=== PATIENT | female | born 1965 | race American Indian/Alaskan Native ===

== ENCOUNTER 2017-06-26 09:59 | Emergency (ER) | payer OTHER ==
[2017-06-26 10:16] VITALS: BP 115/64
[2017-06-26 10:53] LABS: Basophils % (Auto) 0.8 % (0.0-1.8); Eosinophils % (Auto) 0.8 % (0.0-4.3); Hematocrit 34.3 % (30.3-42.9); Hemoglobin 10.8 gm/dl (10.1-14.3); Mean Corpuscular HGB Conc 32 % (30-34); Mean Corpuscular Volume 73 fl (79-97); Platelet Count 273 K/mm3 (140-440); Red Blood Count 4.69 M/mm3 (3.65-5.03); Red Cell Distribution Width 18.1 % (13.2-15.2); White Blood Count 7.3 K/mm3 (4.5-11.0)
[2017-06-26 10:57] LABS: Mean Corpuscular Hemoglobin 23 pg (28-32)
[2017-06-26 11:26] LABS: Alanine Aminotransferase 14 units/L (7-56); Albumin 3.6 g/dL (3.9-5); Alkaline Phosphatase 60 units/L (35-129); Anion Gap 17 mmol/L; BUN/Creatinine Ratio 11.25; Blood Urea Nitrogen 9 mg/dL (7-17); Carbon Dioxide 23 mmol/L (22-30); Chloride 104.6 mmol/L (98-107); Glucose 80 mg/dL (65-100); Potassium 4.3 mmol/L (3.6-5.0); Sodium 140 mmol/L (137-145); Total Protein 7.2 g/dL (6.3-8.2)
[2017-06-26] MEDS ORDERED: BENADRYL IV ONE (16:14)
[2017-06-26] MEDS ORDERED: REGLAN IV ONE (16:14)
[2017-06-26] MEDS ORDERED: NACL 0.9% 1000 ML 1,000 ML IV ONE (16:14)
--- NOTE | 2017-06-26 16:17 | Cat Scan Report ---
CRANIAL CT SCAN: Fall, headache. Serial contiguous axial images were obtained through the cranium. Intravenous contrast material was not administered. The ventricles are normal in size and appearance. There is no mass effect or midline shift. No areas of abnormally increased or decreased attenuation are seen. No mass lesion is seen. The mastoid air cells and visualized portions of the sinuses are normal except for a left frontal osteoma. IMPRESSION: Intracranial CT scan within normal limits. Left frontal osteoma.
--- NOTE | 2017-06-26 16:35 | Emergency Department Report ---
ED Headache HPI - General Chief Complaint: Headache Stated Complaint: HEAD INJURY/NAUSEA/DIZZINESS Time Seen by Provider: 06/26/17 15:01 Source: patient Exam Limitations: no limitations - History of Present Illness Initial Comments: This is a 52-year-old female nontoxic, well nourished in appearance, no acute signs of distress presents to the ED complaining of headache 3 days. Patient stated she was at work and a package of blankets weighing about 30-45 pounds landed on her head which causes her to have headache immediately. They stated every since the trauma patient has been having headaches with nausea or vomiting. Patient describes headache as diffuse and describes it as throbbing/ aching. Patient level is 7 out of 10. Patient stated that light causes the headache to worsen and darkness subside headache. Patient denies any blurry vision or visual changes. Patient denies any chest pain, shortness of breath, fever, chills, stiff neck, numbness, tingling, or abdominal pain. Patient denies loss of consciousness. They stated she felt like her neck had a jerking sensation. Patient denies any allergies or past medical history. Patient's son Real is curretnly at bedside and stated he is the drive and will drive the patient home. Timing/Duration: other (3 days) Quality: moderate Head Injury Location: other (diffuse) Recent Head Trauma: head trauma > 24 hrs ago Associated Symptoms: nausea/vomiting. denies: confusion, fatigue, facial pain, fever/chills, flushing, loss of consciousness, nasal congestion, nasal drainage , numbness in legs/feet, rash, seizures, sinus infection, stiff neck, vision changes, weakness Allergies/Adverse Reactions: Allergies peanut Adverse Reaction (Verified 06/26/17 10:21) Swelling wheat Adverse Reaction (Verified 06/26/17 10:20) Swelling Home Medications: Ambulatory Orders Butalb/Acetamin/Caff 50-325-40 [Fioricet] 1 tab PO Q6HR PRN #60 tab 06/26/17 ED Review of Systems ROS: Stated complaint: HEAD INJURY/NAUSEA/DIZZINESS Other details as noted in HPI Constitutional: denies: chills, fever Eyes: denies: eye pain, eye discharge, vision change ENT: denies: ear pain, throat pain Respiratory: denies: cough, shortness of breath, wheezing Cardiovascular: denies: chest pain, palpitations Endocrine: no symptoms reported Gastrointestinal: denies: abdominal pain, nausea, diarrhea Genitourinary: denies: urgency, dysuria, discharge Musculoskeletal: denies: back pain, joint swelling, arthralgia Skin: denies: rash, lesions Neurological: denies: headache, weakness, paresthesias Psychiatric: denies: anxiety, depression Hematological/Lymphatic: denies: easy bleeding, easy bruising ED Past Medical Hx - Past Medical History Previous Medical History?: No - Surgical History Additional Surgical History: DNC 1989 - Social History Smoking Status: Never Smoker Substance Use Type: None - Medications Home Medications: Home Medications Medication Instructions Recorded Confirmed Last Taken Type Butalb/Acetamin/Caff 50-325-40 1 tab PO Q6HR PRN #60 tab 06/26/17 Unknown Rx [Fioricet] ED Physical Exam - General Limitations: No Limitations General appearance: alert, in no apparent distress - Head Head exam: Present: atraumatic, normocephalic, normal inspection - Eye Eye exam: Present: normal appearance, PERRL, EOMI. Absent: scleral icterus, conjunctival injection, nystagmus, periorbital swelling, periorbital tenderness Pupils: Present: normal accommodation - ENT ENT exam: Present: normal exam, normal orophraynx, mucous membranes moist, TM's normal bilaterally, normal external ear exam - Neck Neck exam: Present: normal inspection, full ROM. Absent: tenderness, meningismus, lymphadenopathy, thyromegaly - Respiratory Respiratory exam: Present: normal lung sounds bilaterally. Absent: respiratory distress, wheezes, rales, rhonchi, stridor, chest wall tenderness, accessory muscle use, decreased breath sounds, prolonged expiratory - Cardiovascular Cardiovascular Exam: Present: regular rate, normal rhythm, normal heart sounds. Absent: bradycardia, tachycardia, irregular rhythm, systolic murmur, diastolic murmur, rubs, gallop - GI/Abdominal GI/Abdominal exam: Present: soft, normal bowel sounds. Absent: distended, tenderness, guarding, rebound, rigid, diminished bowel sounds - Rectal Rectal exam: Present: deferred - Extremities Exam Extremities exam: Present: normal inspection, full ROM, normal capillary refill. Absent: tenderness, pedal edema, joint swelling, calf tenderness - Back Exam Back exam: Present: normal inspection, full ROM, paraspinal tenderness ( cervical region), rash noted. Absent: tenderness, CVA tenderness (R), CVA tenderness (L), muscle spasm, vertebral tenderness - Expanded Back Exam Expanded Back exam: Present: normal rectal tone. Absent: saddle anesthesia Back exam: Negative Straight Leg Raising: Left, Right - Neurological Exam Neurological exam: Present: alert, oriented X3, CN II-XII intact, normal gait, reflexes normal - Expanded Neurological Exam Expanded Patient oriented to: Present: person, place, time Speech: Present: fluid speech Cranial nerves: EOM's Intact: Normal, Gag Reflex: Normal, Tongue Deviation: Normal, Nystagmus: Normal, Facial Sensation: Normal, Facial Palsy with Forehead Movement: Normal, Facial Palsy without Forehead Movement: Normal Cerebellar function: Finger to Nose: Normal, Heel to [place]: Normal, Romberg: Normal Upper motor neuron: Kunal Neglect: Normal, Pronator Drift: Normal, Babinski Sign : Normal, Sensory Extinction: Normal Sensory exam: Upper Extremity Light Touch: Normal, Upper Extremity Pin Prick: Normal, Upper Extremity Temperature: Normal, UE 2 Point Discrimination: Normal, Lower Extremity Light Touch: Normal, Lower Extremity Pin Prick: Normal, Lower Extremity Temperature: Normal, LE 2 Point Discrimination: Normal Motor strength exam: RUE: 5, LUE: 5, RLE: 5, LLE: 5 DTR: bicep (R): 2+, bicep (L): 2+, tricep (R): 2+, tricep (L): 2+, knee (R): 2+ , knee (L): 2+, ankle (R): 2+, ankle (L): 2+ Best Eye Response ([place]): (4) open spontaneously Best Motor Response ([place]): (6) obeys commands Best Verbal Response (Elvie): (5) oriented Elvie Total: 15 - Psychiatric Psychiatric exam: Present: normal affect, normal mood - Skin Skin exam: Present: warm, dry, intact, normal color. Absent: rash - Other Other exam information: Negative spinal tenderness. No bladder or bowel instability. No joint swelling or redness. No deformity. No numbness, no tingling. No ecchymosis. No abdominal distention. ED Course Vital Signs 06/26/17 10:08 Temperature 98.6 F Pulse Rate 76 Respiratory 16 Rate Blood Pressure 115/64 O2 Sat by Pulse 100 Oximetry - Reevaluation(s) Reevaluation #1: 06/26/17 16:36 Patient is speaking in full sentences with no signs of any distress noted. Reevaluation #2: 06/26/17 17:42 Patient did headache has subsided after medical treatment in the ED. ED Medical Decision Making - Lab Data Result diagrams: 06/26/17 10:31 06/26/17 10:31 - Medical Decision Making ED course; this is a 52-year-old female that presents with headache 1-patient was examined by myself. Patient is stable. CT of head/brain and CT of cervical spine has been obtained and dictated by radiologist with no acute findings of any abnormalities. Patient was notified of CT results with noted by the patient. 2- patient received Benadryl and Reglan IV as well as normal saline 1000 mg in the ED. Patient's stated headache has subsided after medical treatment in the ED. 3- patient was instructed not to operate any machinery after discharge due to sedation/drowsiness of Benadryl and patient stated patient's son Real is currently at bedside and stated he is the drive and will drive the patient home. 4- patient was discharged with Fioricet 5- patient was instructed to follow-up with a primary care doctor/neurologist in 3-5 days or if symptoms worsen and continue return to emergency room as soon as possible possible. 6- At time time of discharge, the patient does not seem toxic or ill in appearance. No acute signs of distress noted. Patient agrees to discharge treatment plan of care. No further questions noted by the patient. 7- pt was notified to f/u with PCP for possible anemia. Critical care attestation.: If time is entered above; I have spent that time in minutes in the direct care of this critically ill patient, excluding procedure time. ED Disposition Clinical Impression: Headache Qualifiers: Headache type: unspecified Headache chronicity pattern: unspecified pattern Intractability: not intractable Qualified Code(s): R51 - Headache Anemia Qualifiers: Anemia type: unspecified type Qualified Code(s): D64.9 - Anemia, unspecified Disposition: DC-01 TO HOME OR SELFCARE Is pt being admited?: No Does the pt Need Aspirin: No Condition: Stable Instructions: Butalbital/Acetaminophen/Caffeine (By mouth), Iron Rich Diet (ED) , Iron Deficiency Anemia (ED), Acute Headache (ED) Additional Instructions: follow-up with a primary care doctor/neurologist in 3-5 days or if symptoms worsen and continue return to emergency room as soon as possible possible. Prescriptions: Butalb/Acetamin/Caff 50-325-40 [Fioricet] 1 tab PO Q6HR PRN #60 tab PRN Reason: Headache Referrals: PRIMARY CARE, [Primary Care Provider] - 3-5 Days GISEL CONROY MD [Staff Physician] - 3-5 Days RINA KEEN JR, MD [Referring] - 3-5 Days [facility] [Outside] - 3-5 Days [facility] [Outside] - 3-5 Days Forms: Work/School Release Form(ED)
--- NOTE | 2017-06-26 16:47 | Cat Scan Report ---
CT cervical spine without contrast: Trauma, tenderness. Transverse images were obtained from the skull base through T2. Coronal and sagittal 2-D reformatted images included. Anterior spurs are present inferiorly at C5 and C6. The vertebral height, alignment, and interspaces are generally preserved. There is no fracture. No spinal stenosis and no foraminal stenosis. The bones are well-mineralized. No soft tissue swelling. Impressions: C5 and C6 spondylosis with no acute findings.
== END 2017-06-26 17:51 | disposition home or self-care (01) ==
LOC: ED 09:59
DX: R51 Headache (principal); D64.9 Anemia, unspecified; W20.8XXA Other cause of strike by thrown, projected or falling object, initial encounter; Y93.89 Activity, other specified; Y92.89 Other specified places as the place of occurrence of the external cause; Y99.8 Other external cause status; Z91.010 Allergy to peanuts; Z91.018 Allergy to other foods
CPT/HCPCS: 36415; 70450; 72125; 80053; 85025; 85610; 96361; 96374; 96375; 99284; J1200; J2765; J7030

== ENCOUNTER 2018-06-23 10:10 | Emergency (ER) | payer BC, OTHER ==
[2018-06-23 10:17] VITALS: BP 154/83
[2018-06-23 10:53] LABS: Basophils # (Auto) 0.1 K/mm3 (0.0-0.1); Eosinophils # (Auto) 0.1 K/mm3 (0.0-0.4); Eosinophils % (Auto) 1.5 % (0.0-4.3); Hematocrit 35.9 % (30.3-42.9); Hemoglobin 11.6 gm/dl (10.1-14.3); Lymphocytes # (Auto) 1.7 K/mm3 (1.2-5.4); Lymphocytes % (Auto) 31.9 % (13.4-35.0); Mean Corpuscular HGB Conc 33 % (30-34); Mean Corpuscular Volume 73 fl (79-97); Monocytes # (Auto) 0.5 K/mm3 (0.0-0.8); Monocytes % (Auto) 8.7 % (0.0-7.3); Platelet Count 229 K/mm3 (140-440); Red Cell Distribution Width 19.2 % (13.2-15.2)
[2018-06-23 10:54] LABS: Mean Corpuscular Hemoglobin 24 pg (28-32)
[2018-06-23 11:15] LABS: Alanine Aminotransferase 14 units/L (7-56); BUN/Creatinine Ratio 9; Blood Urea Nitrogen 9 mg/dL (7-17); Calcium 8.9 mg/dL (8.4-10.2); Hemolysis Index 4
--- NOTE | 2018-06-23 12:30 | Emergency Department Report ---
ED General Adult HPI - General Chief complaint: Chest Pain Stated complaint: CHEST PAIN//LIGHTHEADED Time Seen by Provider: 06/23/18 11:56 Source: patient Mode of arrival: Ambulatory Limitations: No Limitations - History of Present Illness Initial comments: She is a 53-year-old [female who is presenting with some atypical chest pain off and on for the past 2 weeks. Patient states when she gets the discomfort she says its center chest that is a tight sensation and lasted 3 minutes. Patient states this has been intermittent and random last 2 weeks. Patient has had a mild cough as well sometimes after these episodes. She denies any diaphoresis shortness of breath productive cough fevers chills nausea vomiting. Patient does states she's been under some stress lately and has a history of ulcers. - Related Data Previous Rx's Medication Instructions Recorded Last Taken Type Butalb/Acetamin/Caff 50-325-40 1 tab PO Q6HR PRN #60 tab 06/26/17 Unknown Rx [Fioricet] Dicyclomine [Bentyl] 10 mg PO QID #15 capsule 06/23/18 Unknown Rx Pantoprazole [Protonix TAB] 20 mg PO QDAY #30 tablet. 06/23/18 Unknown Rx Allergies Allergy/AdvReac Type Severity Reaction Status Date / Time peanut AdvReac Swelling Verified 06/26/17 10:21 wheat AdvReac Swelling Verified 06/26/17 10:20 ED Review of Systems ROS: Stated complaint: CHEST PAIN//LIGHTHEADED Other details as noted in HPI Comment: All other systems reviewed and negative ED Past Medical Hx - Surgical History Additional Surgical History: DNC 1989 - Social History Smoking Status: Never Smoker Substance Use Type: None - Medications Home Medications: Home Medications Medication Instructions Recorded Confirmed Last Taken Type Butalb/Acetamin/Caff 50-325-40 1 tab PO Q6HR PRN #60 tab 06/26/17 Unknown Rx [Fioricet] Dicyclomine [Bentyl] 10 mg PO QID #15 capsule 06/23/18 Unknown Rx Pantoprazole [Protonix TAB] 20 mg PO QDAY #30 tablet. 06/23/18 Unknown Rx ED Physical Exam - General Limitations: No Limitations General appearance: alert, in no apparent distress - Head Head exam: Present: atraumatic, normocephalic - Eye Eye exam: Present: normal appearance - ENT ENT exam: Present: mucous membranes moist - Neck Neck exam: Present: normal inspection - Respiratory Respiratory exam: Present: normal lung sounds bilaterally. Absent: respiratory distress, wheezes, rales, rhonchi - Cardiovascular Cardiovascular Exam: Present: regular rate, normal rhythm. Absent: systolic murmur, diastolic murmur, rubs, gallop - GI/Abdominal GI/Abdominal exam: Present: soft, normal bowel sounds. Absent: distended, tenderness, guarding, rebound - Extremities Exam Extremities exam: Present: normal inspection - Back Exam Back exam: Present: normal inspection - Neurological Exam Neurological exam: Present: alert, oriented X3 - Psychiatric Psychiatric exam: Present: normal affect, normal mood - Skin Skin exam: Present: warm, dry, intact, normal color. Absent: rash ED Course Vital Signs 06/23/18 10:12 Temperature 97.5 F L Pulse Rate 76 Blood Pressure 154/83 O2 Sat by Pulse 99 Oximetry ED Medical Decision Making - Lab Data Result diagrams: 06/23/18 10:39 06/23/18 10:39 r Lab Results 06/23/18 06/23/18 Range/Units 10:39 10:39 WBC 5.4 (4.5-11.0) K/mm3 RBC 4.90 (3.65-5.03) M/mm3 Hgb 11.6 (10.1-14.3) gm/dl Hct 35.9 (30.3-42.9) % MCV 73 L (79-97) fl MCH 24 L (28-32) pg MCHC 33 (30-34) % RDW 19.2 H (13.2-15.2) % Plt Count 229 (140-440) K/mm3 Lymph % (Auto) 31.9 (13.4-35.0) % [place] % (Auto) 8.7 H (0.0-7.3) % Eos % (Auto) 1.5 (0.0-4.3) % Baso % (Auto) 1.0 (0.0-1.8) % Lymph # 1.7 (1.2-5.4) K/mm3 [place] # 0.5 (0.0-0.8) K/mm3 Eos # 0.1 (0.0-0.4) K/mm3 Baso # 0.1 (0.0-0.1) K/mm3 Seg Neutrophils % 56.9 (40.0-70.0) % Seg Neutrophils # 3.1 (1.8-7.7) K/mm3 Sodium 140 (137-145) mmol/L Potassium 4.9 (3.6-5.0) mmol/L Chloride 103.5 (98-107) mmol/L Carbon Dioxide 26 (22-30) mmol/L Anion Gap 15 mmol/L BUN 9 (7-17) mg/dL Creatinine 1.0 (0.7-1.2) mg/dL Estimated GFR > 60 ml/min BUN/Creatinine Ratio 9 % Glucose 121 H (65-100) mg/dL Calcium 8.9 (8.4-10.2) mg/dL Total Bilirubin 0.50 (0.1-1.2) mg/dL AST 24 (5-40) units/L ALT 14 (7-56) units/L Alkaline Phosphatase 75 (35-129) units/L Troponin T < 0.010 (0.00-0.029) ng/mL Total Protein 7.4 (6.3-8.2) g/dL Albumin 4.0 (3.9-5) g/dL Albumin/Globulin Ratio 1.2 % - EKG Data -: EKG Interpreted by Me EKG shows normal: sinus rhythm, axis, intervals, QRS complexes, ST-T waves - EKG Data Interpretation: normal EKG - Medical Decision Making Symptoms most consistent with GERD and patient will be started on Protonix and discharged home with GI follow-up. Critical care attestation.: If time is entered above; I have spent that time in minutes in the direct care of this critically ill patient, excluding procedure time. ED Disposition Clinical Impression: GERD without esophagitis, Atypical chest pain Disposition: DC-01 TO HOME OR SELFCARE Is pt being admited?: No Does the pt Need Aspirin: No Condition: Stable Instructions: Chest Pain (ED), Diet for Ulcers and Gastritis (ED), Gastroesophageal Reflux Disease (ED) Referrals: PRIMARY CARE,MD [Primary Care Provider] - 3-5 Days Time of Disposition: 12:30
== END 2018-06-23 14:11 | disposition home or self-care (01) ==
LOC: ED 10:10
DX: K21.9 Gastro-esophageal reflux disease without esophagitis (principal); R07.89 Other chest pain
CPT/HCPCS: 36415; 80053; 84484; 85025; 93005; 93010

== ENCOUNTER 2020-11-14 12:42 | Emergency (ER) | payer SELFPAY ==
--- NOTE | 2020-11-14 14:09 | Event Note ---
ED Screening Note Date of service: 11/14/20 Time: 14:04 ED Screening Note: 55-year-old -Wallis[place] female presents to the emergency room complaining she just does not feel well for the last 3 days. Patient complains of epigastric pain bilateral shoulder pain without injury he reports nausea mostly in the morning. Patient reports she has been taking Aleve daily for her shoulder pain. In review of chart noted that patient had been treated for epigastric pain and has a history of ulcers. Patient states that she never got her medication filled. She does have a primary care provider and has not been able to get into her. This initial assessment/diagnostic orders/clinical plan/treatment(s) is/are subject to change based on patients health status, clinical progression and re- assessment by fellow clinical providers in the ED. Further treatment and workup at subsequent clinical providers discretion. Patient/guardian urged not to elope from the ED as their condition may be serious if not clinically assessed and managed. Initial orders include:
[2020-11-14] MEDS ORDERED: ONDANSETRON 4 MG ODT TAB PO ONE (14:11)
[2020-11-14 14:55] LABS: Basophils # (Auto) 0.1 K/mm3 (0.0-0.1); Basophils % (Auto) 0.8 % (0.0-1.8); Eosinophils # (Auto) 0.1 K/mm3 (0.0-0.4); Eosinophils % (Auto) 1.6 % (0.0-4.3); Hematocrit 42.4 % (30.3-42.9); Hemoglobin 13.9 gm/dl (10.1-14.3); Lymphocytes # (Auto) 2.4 K/mm3 (1.2-5.4); Lymphocytes % (Auto) 35.2 % (13.4-35.0); Mean Corpuscular HGB Conc 33 % (30-34); Mean Corpuscular Volume 79 fl (79-97); Monocytes # (Auto) 0.6 K/mm3 (0.0-0.8); Monocytes % (Auto) 8.7 % (0.0-7.3); Platelet Count 242 K/mm3 (140-440); Red Blood Count 5.38 M/mm3 (3.65-5.03); Red Cell Distribution Width 16.6 % (13.2-15.2)
[2020-11-14 15:08] LABS: Alanine Aminotransferase 17 units/L (7-56); Albumin 4.2 g/dL (3.9-5); BUN/Creatinine Ratio 12; Blood Urea Nitrogen 11 mg/dL (7-17); Calcium 9.2 mg/dL (8.4-10.2); Hemolysis Index 5
[2020-11-14] MEDS ORDERED: DICYCLOMINE 20 MG TAB ONE (15:45)
[2020-11-14] MEDS ORDERED: DICYCLOMINE 10 MG CAP PO ONE (15:49)
[2020-11-14] MEDS: FAMOTIDINE 20 MG TAB PO ONE (15:51)
--- NOTE | 2020-11-14 15:51 | Emergency Department Report ---
ED General Adult HPI - General Chief complaint: Weakness Stated complaint: shoulder pains Source: patient Mode of arrival: Ambulatory Limitations: No Limitations - History of Present Illness Initial comments: 55-year-old -English female presents to the emergency room complaining she just does not feel well for the last 3 days. Patient complains of epigastric pain bilateral shoulder pain without injury he reports nausea mostly in the morning. Patient reports she has been taking Aleve daily for her shoulder pain. In review of chart noted that patient had been treated for epigastric pain and has a history of ulcers. Patient states that she never got her medication filled. She does have a primary care provider and has not been able to get into her. Onset/Timin -: days(s) Location: abdomen (Epigastric) Severity scale (0 -10): 7 Consistency: intermittent Improves with: none Worsens with: none Associated Symptoms: nausea/vomiting (Nausea in the morning) - Related Data Previous Rx's Medication Instructions Recorded Last Taken Type Butalb/Acetamin/Caff 50-325-40 1 tab PO Q6HR PRN #60 tab 06/26/17 Unknown Rx [Fioricet] Dicyclomine [Bentyl] 10 mg PO QID #15 capsule 06/23/18 Unknown Rx Pantoprazole [Protonix TAB] 20 mg PO QDAY #30 tablet. 06/23/18 Unknown Rx Gabapentin 300 mg PO BID PRN #60 cap 04/09/20 Unknown Rx Naproxen 500 mg PO Q12H PRN #30 tablet 04/09/20 Unknown Rx Prednisone [predniSONE 10 mg 10 mg PO .TAPER #21 tab.ds.pk 04/09/20 Unknown Rx (6-Day Pack, 21 Tabs)] Allergies Allergy/AdvReac Type Severity Reaction Status Date / Time peanut AdvReac Swelling Verified 06/26/17 10:21 wheat AdvReac Swelling Verified 06/26/17 10:20 ED Review of Systems ROS: Stated complaint: shoulder pains Other details as noted in HPI Comment: All other systems reviewed and negative ED Past Medical Hx - Past Medical History Previous Medical History?: No - Surgical History Past Surgical History?: Yes Additional Surgical History: D&C 1989 - Social History Smoking Status: Never Smoker Substance Use Type: None - Medications Home Medications: Home Medications Medication Instructions Recorded Confirmed Last Taken Type Butalb/Acetamin/Caff 50-325-40 1 tab PO Q6HR PRN #60 tab 06/26/17 Unknown Rx [Fioricet] Dicyclomine [Bentyl] 10 mg PO QID #15 capsule 06/23/18 Unknown Rx Pantoprazole [Protonix TAB] 20 mg PO QDAY #30 tablet. 06/23/18 Unknown Rx Gabapentin 300 mg PO BID PRN #60 cap 04/09/20 Unknown Rx Naproxen 500 mg PO Q12H PRN #30 tablet 04/09/20 Unknown Rx Prednisone [predniSONE 10 mg 10 mg PO .TAPER #21 tab.ds.pk 04/09/20 Unknown Rx (6-Day Pack, 21 Tabs)] ED Physical Exam - General Limitations: No Limitations General appearance: alert, in no apparent distress - Head Head exam: Present: atraumatic, normocephalic - Eye Eye exam: Present: normal appearance - ENT ENT exam: Present: mucous membranes moist - Neck Neck exam: Present: full ROM - Respiratory Respiratory exam: Absent: accessory muscle use - Cardiovascular Cardiovascular Exam: Present: regular rate, normal rhythm. Absent: systolic murmur, diastolic murmur, rubs, gallop - GI/Abdominal GI/Abdominal exam: Present: soft. Absent: distended, tenderness - Extremities Exam Extremities exam: Present: normal inspection, full ROM - Neurological Exam Neurological exam: Present: alert, oriented X3, normal gait - Psychiatric Psychiatric exam: Present: normal affect, normal mood - Skin Skin exam: Present: warm, dry, intact, normal color. Absent: rash ED Course Vital Signs 11/14/20 13:27 Temperature 98.3 F Pulse Rate 75 Blood Pressure 138/75 ED Medical Decision Making - Lab Data Result diagrams: 11/14/20 14:29 11/14/20 14:29 - Medical Decision Making 55-year-old -English female presents to the emergency room complaining she just does not feel well for the last 3 days. Patient complains of epigastric pain bilateral shoulder pain without injury he reports nausea mostly in the morning. Patient reports she has been taking Aleve daily for her shoulder pain. In review of chart noted that patient had been treated for epigastric pain and has a history of ulcers. Patient states that she never got her medication filled. She does have a primary care provider and has not been able to get into her. Labs are within normal limits. Patient was given Bentyl 20 mg p.o. and Pepcid 20 mg p.o. Patient be discharged home with instructions for GERD. Patient is referred to a stockbroking dealer and to follow-up with her primary care provider. Instructed patient to take Tylenol for her pain. Critical care attestation.: If time is entered above; I have spent that time in minutes in the direct care of this critically ill patient, excluding procedure time. ED Disposition Clinical Impression: Epigastric abdominal pain GERD (gastroesophageal reflux disease) Qualifiers: Esophagitis presence: without esophagitis Qualified Code(s): K21.9 - Gastro- esophageal reflux disease without esophagitis Trapezius muscle strain Qualifiers: Encounter type: initial encounter Laterality: unspecified laterality Qualified Code(s): S46.819A - Strain of other muscles, fascia and tendons at shoulder and upper arm level, unspecified arm, initial encounter Disposition: TO HOME OR SELFCARE Is pt being admited?: No Does the pt Need Aspirin: No Condition: Stable Instructions: Food Choices for Gastroesophageal Reflux Disease, Adult, [id number] Additional Instructions: Your labs are negative for any acute findings. I recommend taking ov [id number] omeprazole or Nexium. I strongly suggest for you to follow-up with a stockbroking dealer as well as your primary care provider. Discontinue taking Aleve and start taking Tylenol for your pain. Referrals: DORINA ANGEL NP-C [Primary Care Provider] - 3-5 Days [facility] [Provider Group] - 3-5 Days Forms: Work/School Release Form(ED)
[2020-11-14 16:08] VITALS: BP 146/69
[2020-11-14] MEDS ORDERED: DICYCLOMINE 10 MG/5 ML ORAL LIQD PO SCH (18:00)
== END 2020-11-14 16:06 | disposition home or self-care (01) ==
LOC: ED 12:42
DX: S46.811A Strain of other muscles, fascia and tendons at shoulder and upper arm level, right arm, initial encounter (principal); S46.812A Strain of other muscles, fascia and tendons at shoulder and upper arm level, left arm, initial encounter; K21.9 Gastro-esophageal reflux disease without esophagitis; R10.13 Epigastric pain; Z79.899 Other long term (current) drug therapy; Z91.010 Allergy to peanuts; Z91.018 Allergy to other foods; Z98.890 Other specified postprocedural states; X58.XXXA Exposure to other specified factors, initial encounter; Y93.89 Activity, other specified; Y92.89 Other specified places as the place of occurrence of the external cause; Y99.8 Other external cause status
CPT/HCPCS: 36415; 80053; 83690; 85025; Q0162